=== PATIENT | female | born 1995 | race Caucasian/White ===

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

== ENCOUNTER 2017-02-09 19:51 | Emergency (ER) | payer OTHER ==
[2017-02-09 21:35] LABS: ABSOLUTE BASOPHILS # (AUTO) 0.1 10^3/uL (0.0-0.2); ABSOLUTE EOSINOPHILS # (AUTO) 0.2 10^3/uL (0.0-0.6); ABSOLUTE LYMPHOCYTES (AUTO) 3.1 10^3/uL (0.5-4.7); ABSOLUTE MONOCYTES (AUTO) 0.8 10^3/uL (0.1-1.4); ABSOLUTE NEUT (AUTO) 4.7 10^3/uL (1.7-8.2); BASOPHILS % (AUTO) 0.7 % (0-2); EOSINOPHILS % (AUTO) 2.4 % (0-6); HEMATOCRIT 41.2 % (36.0-47.0); HEMOGLOBIN 14.1 g/dL (12.0-15.5); HGB HCT DIFFERENCE 1.1; LYMPHOCYTES % (AUTO) 34.6 % (13-45); MEAN CORPUSCULAR HEMOGLOBIN 29.5 pg (27.0-33.4); MEAN CORPUSCULAR HGB CONC 34.2 g/dL (32.0-36.0); MEAN CORPUSCULAR VOLUME 86 fl (80-97); MONOCYTES % (AUTO) 8.5 % (3-13); RED BLOOD COUNT 4.79 10^6/uL (3.72-5.28); RED CELL DISTRIBUTION WIDTH 12.8 % (11.5-14.0); SEGMENTED NEUTROPHILS % (AUTO) 53.8 % (42-78); WHITE BLOOD COUNT 8.8 10^3/uL (4.0-10.5)
[2017-02-09 21:36] LABS: APPEARANCE,URINE CLEAR; BILIRUBIN,URINE NEGATIVE (NEGATIVE); GLUCOSE, URINE NEGATIVE (NEGATIVE); KETONES,URINE NEGATIVE (NEGATIVE); LEUKOCYTE ESTERASE,URINE NEGATIVE (NEGATIVE); NITRITE,URINE NEGATIVE (NEGATIVE); PROTEIN,URINE NEGATIVE (NEGATIVE); URINE SPECIFIC GRAVITY 1.014; UROBILINOGEN,URINE NEGATIVE mg/dL (<2.0)
[2017-02-09 21:49] LABS: ALANINE AMINOTRANSFERASE 31 U/L (5-35); ALBUMIN 4.5 g/dL (3.7-5.6); ALKALINE PHOSPHATASE 55 U/L (50-135); ANION GAP 12 (5-19); ASPARTATE AMINO TRANSFERASE 25 U/L (5-30); BILIRUBIN,DIRECT 0.2 mg/dL (0.0-0.4); BILIRUBIN,TOTAL 0.6 mg/dL (0.2-1.3); BLOOD UREA NITROGEN 22 mg/dL (7-20); CALCIUM 9.5 mg/dL (8.4-10.2); CARBON DIOXIDE 26 mmol/L (22-30); CHLORIDE 105 mmol/L (98-107); CREATININE RESULT 0.72 mg/dL (0.52-1.25); GLUCOSE 85 mg/dL (75-110); POTASSIUM 3.9 mmol/L (3.6-5.0); SODIUM 142.5 mmol/L (137-145); TOTAL PROTEIN 7.9 g/dL (6.3-8.2)
[2017-02-09] MEDS ORDERED: HYDROCODONE/ACETAMINOPHEN 5-325 MG TABLET PO ONE (23:53)
[2017-02-09] MEDS ORDERED: ONDANSETRON 4 MG TAB.RAPDIS PO ONE (23:53)
[2017-02-09] MEDS ORDERED: FAMOTIDINE 20 MG TABLET PO ONE (23:53)
--- NOTE | 2017-02-09 23:59 | ER Document Report ---
ED General - General Chief Complaint: Vaginal Bleeding Stated Complaint: VAGINAL BLEEDING/ABDOMINAL PAIN Time Seen by Provider: 02/09/17 23:40 TRAVEL OUTSIDE OF THE [place] IN LAST 30 DAYS: No - HPI Notes: Patient is a pleasant 21-year-old white female presents to the emergency department with report that she had a miscarriage 4 months ago which she describes as having a positive home test but was completely negative when she arrived with vaginal bleeding in the emergency department. Her hCG quant was completely negative at that time. The patient states that she normally has somewhat heavy menstrual cycle and had a normal menses 2 weeks ago and then comes in now with report that she was passing jellylike clots. The patient denies heavy bleeding currently but states the blood is somewhat dark. The patient states she has some crampy pelvic pain, but she also reports some pain to the midepigastric region. She is not taking any anti-inflammatories. She reports nausea but no vomiting. She denies any chest pain or difficulty breathing or constipation or diarrhea. No history of gastritis. She does have dysfunctional uterine bleeding. She had a previous miscarriage one year ago. Patient reports prior to her miscarriage In September, she was on a control pill and was compliant. However she got while she was on it. Since having the miscarriage she has not restarted any control pills. She previously reports being on control pills related to the irregular menstrual cycles and menorrhagia that she has had in the past. - Related Data Allergies/Adverse Reactions: Sulfa (Sulfonamide Antibiotics) Allergy (Mild, Verified 10/19/16 07:04) Past Medical History - General Information source: Patient - Social History Smoking Status: Never Smoker Frequency of alcohol use: None Drug Abuse: None Lives with: Alone Family History: Reviewed & Not Pertinent Patient has suicidal ideation: No Patient has homicidal ideation: No Renal/ Medical History: Denies: Hx Peritoneal Dialysis Review of Systems - Review of Systems Notes: REVIEW OF SYSTEMS: CONSTITUTIONAL : Denies fever, chills, or sweats. Denies recent illness. EENT: Denies eye, ear, throat, or mouth pain or symptoms. Denies nasal or sinus congestion or discharge. Denies throat, tongue, or mouth swelling or difficulty swallowing. CARDIOVASCULAR: Denies chest pain. Denies palpitations or racing or irregular heart beat. Denies ankle edema. RESPIRATORY: Denies cough, cold, or chest congestion. Denies shortness of breath, difficulty breathing, or wheezing. GASTROINTESTINAL: Denies abdominal distention. Denies vomiting, or diarrhea. Denies blood in vomitus, stools, or per rectum. Denies black, tarry stools. Denies constipation. GENITOURINARY: Denies difficulty urinating, painful urination, burning, frequency, blood in urine, or discharge. FEMALE GENITOURINARY: Denies vaginal discharge or odor. MUSCULOSKELETAL: Denies neck pain or stiffness. Denies joint pain or swelling. Minor pain to the lower back. SKIN: Denies rash, lesions or sores. HEMATOLOGIC : Denies easy bruising or bleeding. LYMPHATIC: Denies swollen, enlarged glands. NEUROLOGICAL: Denies confusion or altered mental status. Denies passing out or loss of consciousness. Denies dizziness or lightheadedness. Denies headache. Denies weakness or paralysis or loss of use of either side. Denies problems with gait or speech. Denies sensory loss, numbness, or tingling. Denies seizures. PSYCHIATRIC: Denies anxiety or stress. Denies depression, suicidal ideation, or homicidal ideation. ALL OTHER SYSTEMS REVIEWED AND NEGATIVE. Dictation was performed using [employer] voice recognition software Physical Exam - Vital signs Vitals: Temp Pulse Resp BP Pulse Ox 98.6 F 75 18 139/86 H 100 02/09/17 20:01 02/09/17 20:01 02/09/17 20:01 02/09/17 20:01 02/09/17 20:01 - Notes Notes: PHYSICAL EXAMINATION: GENERAL: Well-appearing, well-nourished and in no acute distress. HEAD: Atraumatic, normocephalic. EYES: Pupils equal round and reactive to light, extraocular movements intact, conjunctiva are normal. ENT: Nares patent, oropharynx clear without exudates. Moist mucous membranes. NECK: Normal range of motion, supple without lymphadenopathy LUNGS: Breath sounds clear to auscultation bilaterally and equal. No wheezes rales or rhonchi. HEART: Regular rate and rhythm without murmurs ABDOMEN: Soft, some tenderness midepigastric region. There is also some suprapubic discomfort. There is no rebound or guarding nondistended abdomen. No guarding, no rebound. No masses appreciated.. Negative Cole's. Female : Normal external female genitalia. minimal dark red blood noted. No clots. Cervix is benign without lesions. There is no cervical motion tenderness. There is no adnexal mass or tenderness noted. Musculoskeletal: Normal range of motion, no pitting or edema. No cyanosis. NEUROLOGICAL: Cranial nerves grossly intact. Normal speech, normal gait. Normal sensory, motor exams PSYCH: Normal mood, normal affect. SKIN: Warm, Dry, normal turgor, no rashes or lesions noted. Course - Re-evaluation Re-evalutation: 02/10/17 02:16 There is no further significant bleeding on repeat evaluation. After Pepcid and Bolivar, patient denied any further abdominal discomfort. There is no evidence for , anemia, hepatitis, electrolyte imbalance, urinary tract infection, acute cholecystitis. 02/10/17 02:[address] patient on hormone therapy with Orthocyclen and she has a follow- up appointment in 16 days with women's health. Patient was informed that they may decide to switch her control pill later. 02/10/17 02:17 - Vital Signs Vital signs: Temp Pulse Resp BP Pulse Ox 98.6 F 76 16 134/82 H 100 02/09/17 20:01 02/09/17 23:41 02/09/17 23:41 02/09/17 23:41 02/09/17 23:41 - Laboratory Result Diagrams: 02/09/17 21:28 02/09/17 21:28 Laboratory results interpreted by me: 02/09/17 02/09/17 21:19 21:28 BUN 22 H Urine Ascorbic Acid 40 H Discharge - Discharge Clinical Impression: Menorrhagia with irregular cycle Condition: Stable Disposition: HOME, SELF-CARE Admitting Provider: [facility] Instructions: Menorrhagia ([facility]) Additional Instructions: Drink plenty of fluids. Return to the emergency department case of fever, severe bleeding or severe pain. Prescriptions: Norgestimate-Ethinyl Estradiol [Ortho-Cyclen] 1 each PO ASDIR #1 tablet Referrals: [facility] [Provider Group] - Follow up as needed [facility] [Provider Group] - Follow up as needed
[2017-02-10 02:38] VITALS: BP 119/75
[2017-02-10 02:56] LABS: CHLAM PCR NOT DETECTED (NOT DETECT)
== END 2017-02-10 02:25 | disposition home or self-care (01) ==
LOC: ER 19:51
DX: N92.1 Excessive and frequent menstruation with irregular cycle (principal); R10.2 Pelvic and perineal pain; R10.13 Epigastric pain; R11.0 Nausea; N93.8 Other specified abnormal uterine and vaginal bleeding; Z88.2 Allergy status to sulfonamides
CPT/HCPCS: 99284; 36415; 87210; 84702; 84703; 85025; 80053; 81001; 87491; 87591; S0119

== ENCOUNTER 2017-07-15 12:03 | Emergency (ER) | payer OTHER ==
--- NOTE | 2017-07-15 12:51 | ER Document Report ---
HPI - HPI Patient complains to provider of: UTI symptoms, hematuria Onset: Yesterday Onset/Duration: Worse Quality of pain: Burning Pain Level: 4 Context: Patient presents complaining of dysuria and hematuria that started yesterday. Patient complains of bilateral flank pain as well. Patient denies any fever, nausea, or vomiting. Associated Symptoms: Other - Hematuria, flank pain. denies: Fever, Nausea, Vomiting Exacerbated by: Denies Relieved by: Denies Similar symptoms previously: No Recently seen / treated by doctor: No - ROS ROS below otherwise negative: Yes Systems Reviewed and Negative: Yes All other systems reviewed and negative - CONSTITUTIONAL Constitutional: DENIES: Fever, Chills - NEURO Neurology: DENIES: Weakness - GASTROINTESTINAL Gastrointestinal: DENIES: Abdominal Pain, Nausea, Patient vomiting, Diarrhea - URINARY Urinary: REPORTS: Dysuria - MUSCULOSKELETAL Musculoskeletal: REPORTS: Back Pain - DERM Skin Color: Normal Skin Problems: None Past Medical History - General Information source: Patient - Social History Smoking Status: Never Smoker Frequency of alcohol use: None Drug Abuse: None Occupation: Foodservice Family History: Arthritis, CAD, CVA, DM, Hyperlipidemia, Hypertension, Malignancy, Thyroid Disfunction Endocrine Medical History: Reports: Other - Hypoglycemia Renal/ Medical History: Denies: Hx Peritoneal Dialysis Musculoskeltal Medical History: Reports Hx Musculoskeletal Trauma - Fractured thumb, clavicle, eye socket Traumatic Medical History: Reports: Hx Fractures - Fractured thumb clavicle and eye socket Surgical Hx: Negative Vertical Provider Document - CONSTITUTIONAL Agree With Documented VS: Yes Exam Limitations: No Limitations General Appearance: WD/WN, No Apparent Distress - INFECTION CONTROL TRAVEL OUTSIDE OF THE [place] IN LAST 30 DAYS: No - HEENT HEENT: Atraumatic, Normocephalic - NECK Neck: Normal Inspection - RESPIRATORY Respiratory: Breath Sounds Normal, No Respiratory Distress O2 Sat by Pulse Oximetry: 98 - CARDIOVASCULAR Cardiovascular: Regular Rate, Regular Rhythm, No Murmur - GI/ABDOMEN Gastrointestinal: Abdomen Soft - BACK Back: negative: CVA Tenderness-Right, CVA Tenderness-Left Notes: Left lower lumbar paraspinal tenderness - MUSCULOSKELETAL/EXTREMETIES Musculoskeletal/Extremeties: BRUCE MARTIN - NEURO Level of Consciousness: Awake, Alert, Appropriate Motor/Sensory: No Motor Deficit - DERM Integumentary: Warm, Dry, No Rash Course - Vital Signs Vital signs: Temp Pulse Resp BP Pulse Ox 98.2 F 66 16 123/76 98 07/15/17 12:14 07/15/17 12:14 07/15/17 12:14 07/15/17 12:14 07/15/17 12:14 - Laboratory Laboratory results interpreted by me: 07/15/17 16:25 Labs- Entire Visit 07/15/17 13:50 Urine Color YELLOW Urine Appearance CLOUDY Urine pH 6.0 Ur Specific [place] 1.016 Urine Protein 30 H Urine Glucose (UA) NEGATIVE Urine Ketones NEGATIVE Urine Blood LARGE H Urine Nitrite NEGATIVE Urine Bilirubin NEGATIVE Urine Urobilinogen NEGATIVE Ur Leukocyte Esterase MODERATE H Urine RBC TOO NUMEROUS TO CNT Urine WBC 20-30 Ur Squamous Epith Cells MODERATE Urine Ascorbic Acid NEGATIVE Urine HCG, Qual NEGATIVE - Diagnostic Test Radiology reviewed: Reports reviewed Discharge - Discharge Clinical Impression: UTI (urinary tract infection) Qualifiers: Urinary tract infection type: site unspecified Hematuria presence: with hematuria Qualified Code(s): N39.0 - Urinary tract infection, site not specified Hematuria Qualifiers: Hematuria type: unspecified type Qualified Code(s): R31.9 - Hematuria, unspecified Condition: Stable Disposition: HOME, SELF-CARE Instructions: Cephalexin ([facility]), Urinary Anesthetic Agent ([facility]), Urinary Tract Infection ([facility]) Additional Instructions: Return immediately for any new or worsening symptoms Followup with your primary care provider, call tomorrow to make a followup appointment Urine culture is pending, we will call if you need any different treatment Prescriptions: Cephalexin Monohydrate [Keflex 500 mg Capsule] 500 mg PO Q6H 7 Days capsule Phenazopyridine HCl [Pyridium 200 mg Tablet] 200 mg PO TID #15 tablet Forms: Return to Work Referrals: CATRINA LYNCH MD [Primary Care Provider] - Follow up as needed
[2017-07-15 14:55] LABS: APPEARANCE,URINE CLOUDY; BILIRUBIN,URINE NEGATIVE (NEGATIVE); GLUCOSE, URINE NEGATIVE (NEGATIVE); KETONES,URINE NEGATIVE (NEGATIVE); LEUKOCYTE ESTERASE,URINE MODERATE (NEGATIVE); NITRITE,URINE NEGATIVE (NEGATIVE); PROTEIN,URINE 30 mg/dL (NEGATIVE); URINE SPECIFIC GRAVITY 1.016; UROBILINOGEN,URINE NEGATIVE mg/dL (<2.0)
[2017-07-15 15:00] LABS: RBC,URINE TOO NUMEROUS TO CNT /HPF; WBC,URINE 20-30 /HPF
[2017-07-15] MEDS ORDERED: CEPHALEXIN 500 MG CAPSULE PO ONE (15:19)
[2017-07-15] MEDS ORDERED: PHENAZOPYRIDINE HCL 100 MG TABLET PO ONE (15:19)
--- NOTE | 2017-07-15 16:19 | RADIOLOGY REPORT (SQ) ---
EXAM DESCRIPTION: U/S RETROPERITON (RENAL/AORTA) COMPLETED DATE/TIME: 07/15/2017 4:12 pm REASON FOR STUDY: flank pain, hematuria COMPARISON: None. TECHNIQUE: Dynamic and static grayscale images acquired of the kidneys and bladder and recorded on P ACS. Additional selected color Doppler and spectral images recorded. LIMITATIONS: None. FINDINGS: RIGHT KIDNEY: Normal size. Normal echogenicity. No solid or suspicious masses. No hydronep hrosis. No calcifications. LEFT KIDNEY: Normal size. Normal echogenicity. No solid or suspicious masses. No hydronephrosis. No calcifications. BLADDER: No masses. OTHER FINDINGS: No other significant finding. IMPRESSION: NORMAL RENAL AND BLADDER ULTRASOUND. TECHNICAL DOCUMENTATION: JOB ID: [id number] [place]-72 2010 [employer]- All Rights Reserved
[2017-07-15 16:35] VITALS: BP 123/81
== END 2017-07-15 16:30 | disposition home or self-care (01) ==
LOC: ER 12:03
DX: N39.0 Urinary tract infection, site not specified (principal); R31.9 Hematuria, unspecified; R30.0 Dysuria; R10.9 Unspecified abdominal pain
CPT/HCPCS: 99284; 87086; 81025; 87088; 81001; 87186; 76770; J3490

== ENCOUNTER 2017-10-12 18:49 | Emergency (ER) | payer OTHER ==
--- NOTE | 2017-10-12 20:05 | ER Document Report ---
ED General - General Chief Complaint: Dizziness Stated Complaint: DIZZINESS, VAGINAL BLEEDING Time Seen by Provider: 10/12/17 19:52 Mode of Arrival: Ambulatory Information source: Patient Notes: 22-year-old female with history of abnormal vaginal bleeding presents with complaints of nausea, vomiting, abnormal vaginal bleeding, abdominal pain. Patient states she has been experiencing right lower quadrant pain for 2 days. She describes it as aching, throbbing and without radiation. pain was gradual in onset and patient has had prior similar symptoms. She has had associated nausea and 2 episodes of vomiting this afternoon. She denies any fever, chills , chest pain or shortness of breath. She denies any dysuria, vaginal discharge. she is sexually active with one partner and use control pills as well as condoms. Patient has been compliant with her control. LMP 2017. states she is only suppose to get her period every four months and that why she is saying this "abnormal bleeding". she has had recent STD testing. denies history of ovarian cysts but does state she had heavy menstrual cycles in the past. TRAVEL OUTSIDE OF THE [place] IN LAST 30 DAYS: No - Related Data Allergies/Adverse Reactions: Sulfa (Sulfonamide Antibiotics) Allergy (Mild, Verified 06/15/17 11:17) Past Medical History - Social History Smoking Status: Never Smoker Frequency of alcohol use: None Drug Abuse: None Lives with: Family Family History: Arthritis, CAD, CVA, DM, Hyperlipidemia, Hypertension, Malignancy, Thyroid Disfunction Patient has suicidal ideation: No Patient has homicidal ideation: No - Past Medical History Cardiac Medical History: Reports: Other - DUB, syncopal episodes, Renal/ Medical History: Denies: Hx Peritoneal Dialysis Musculoskeltal Medical History: Reports Hx Musculoskeletal Trauma - Fractured thumb, clavicle, eye socket Traumatic Medical History: Reports: Hx Fractures - Fractured thumb clavicle and eye socket Review of Systems - Review of Systems Constitutional: No symptoms reported. denies: Fever, Recent illness EENT: No symptoms reported Cardiovascular: No symptoms reported Respiratory: No symptoms reported Gastrointestinal: Abdominal pain, Nausea, Vomiting. denies: Poor appetite, Poor fluid intake, Blood in vomit, Black stools Genitourinary: denies: Dysuria, Discharge, Frequency, Flank pain Female Genitourinary: Last menstrual period - 09/01/2017, Heavy/abnormal periods , Irregular period Neurological/Psychological: Headaches. denies: Confusion, Seizure, Lost consciousness, Numbness Physical Exam - Vital signs Vitals: Temp Pulse Resp BP Pulse Ox 98.5 F 77 16 134/81 H 99 10/12/17 19:04 10/12/17 19:04 10/12/17 19:04 10/12/17 19:04 10/12/17 19:04 - Abdominal Distension: No distension Bowel sounds: Normal Tenderness: No: Tender, Guarding, Rebound Organomegaly: No: No organomegaly - Genitourinary Speculum exam: Cervix closed, Other - mild vaginal bleeding Vaginal bleeding: Mild Bimanuel exam: Normal. No: Cervical motion tender, Adnexal mass, Adnexal tenderness - Back Back: Normal, Nontender. No: CVA tenderness - Neurological Neuro grossly intact: Yes Cognition: Normal Orientation: AAOx4 [place] Coma Scale Eye Opening: Spontaneous [place] Coma Scale Verbal: Oriented [place] Coma Scale Motor: Obeys Commands Valeria Coma Scale Total: 15 Speech: Normal Motor strength normal: LUE, RUE, LLE, RLE Sensory: Normal Course - Re-evaluation Re-evalutation: 10/13/17 14:45 Laboratory 10/12/17 10/12/17 10/12/17 19:53 20:10 20:29 WBC 10.3 RBC 4.43 Hgb 13.6 Hct 38.5 MCV 87 MCH 30.6 MCHC 35.3 RDW 13.1 Plt Count 256 Seg Neutrophils % 61.2 Lymphocytes % 29.8 Monocytes % 7.4 Eosinophils % 1.1 Basophils % 0.5 Absolute Neutrophils 6.3 Absolute Lymphocytes 3.1 Absolute Monocytes 0.8 Absolute Eosinophils 0.1 Absolute Basophils 0.1 POC Glucose 130 H Urine Color YELLOW Urine Appearance SLIGHTLY-CLOUDY Urine pH 5.0 Ur Specific [place] 1.029 Urine Protein NEGATIVE Urine Glucose (UA) NEGATIVE Urine Ketones NEGATIVE Urine Blood NEGATIVE Urine Nitrite NEGATIVE Urine Bilirubin NEGATIVE Urine Urobilinogen NEGATIVE Ur Leukocyte Esterase NEGATIVE Urine WBC (Auto) 1 Urine RBC (Auto) 1 Squamous Epi Cells Auto <1 Urine Mucus (Auto) OCC Urine Ascorbic Acid 40 H Urine HCG, Qual NEGATIVE Bacteria (Wet Prep) Trichomonas (Wet Prep) Vaginal WBC Vaginal RBC Vaginal Yeast Chlamydia DNA (PCR) N.gonorrhoeae DNA (PCR) 10/12/17 10/12/17 20:29 20:29 WBC RBC Hgb Hct MCV MCH MCHC RDW Plt Count Seg Neutrophils % Lymphocytes % Monocytes % Eosinophils % Basophils % Absolute Neutrophils Absolute Lymphocytes Absolute Monocytes Absolute Eosinophils Absolute Basophils POC Glucose Urine Color Urine Appearance Urine pH Ur Specific [place] Urine Protein Urine Glucose (UA) Urine Ketones Urine Blood Urine Nitrite Urine Bilirubin Urine Urobilinogen Ur Leukocyte Esterase Urine WBC (Auto) Urine RBC (Auto) Squamous Epi Cells Auto Urine Mucus (Auto) Urine Ascorbic Acid Urine HCG, Qual Bacteria (Wet Prep) 4+ BACTERIA SEEN Trichomonas (Wet Prep) NO TRICHOMONAS SEEN Vaginal WBC FEW WBCS SEEN Vaginal RBC 2+ RBCS SEEN Vaginal Yeast NO YEAST SEEN Chlamydia DNA (PCR) NOT DETECTED N.gonorrhoeae DNA (PCR) NOT DETECTED 22 F with history of heavy menstrual period currently on control presnets with c/o of RLQ pain, abnormal vaginal bleeding, nausea and vomiting. Upon arrival vitals reviewed and wnl. Patient does not appear toxic or dehydrated she is in NAD. Abdominal exam is wnl. patient does not have tenderness on my exam nor does she display guarding or rebound. Pelvic exam was performed and significant for mild vaginal bleeding. Patient had no CMT or adenal tenderness or fullness. Patient is not , shows no evidence of anemia or bacterial infection although GC results pending. Patient's pain resolved with toradol. Patient well appearing upon discharge. advised to f/u with [facility]. Have low suspicion for torsion as this pain is mild and was gradual in onset and patient states she has had this many times before. I believe the patient;s abdominal discomfort is secondary to her menstrual cycle. symptoms that should prompt her return were discussed with patient. - Vital Signs Vital signs: Temp Pulse Resp BP Pulse Ox 98.5 F 65 18 128/85 H 99 10/12/17 19:04 10/12/17 22:32 10/12/17 22:32 10/12/17 22:32 10/12/17 22:32 - Laboratory Result Diagrams: 10/12/17 20:29 Laboratory results interpreted by me: 10/12/17 10/12/17 19:53 20:10 POC Glucose 130 H Urine Ascorbic Acid 40 H Discharge - Discharge Clinical Impression: Vaginal bleeding, Abdominal cramping, Dizziness Condition: Good Disposition: HOME, SELF-CARE Instructions: Dizziness ([facility]), Vaginal Bleeding ([facility]) Prescriptions: Ibuprofen [Motrin 600 Mg Tablet] 600 mg PO TID #15 tablet Ondansetron [Zofran Odt 4 mg Tablet] 1 - 2 tab PO Q4H PRN #15 tab.rapdis PRN Reason: For Nausea/Vomiting
[2017-10-12 20:40] LABS: APPEARANCE,URINE SLIGHTLY-CLOUDY; BILIRUBIN,URINE NEGATIVE (NEGATIVE); COLOR,URINE YELLOW; GLUCOSE, URINE NEGATIVE (NEGATIVE); KETONES,URINE NEGATIVE (NEGATIVE); LEUKOCYTE ESTERASE,URINE NEGATIVE (NEGATIVE); NITRITE,URINE NEGATIVE (NEGATIVE); PROTEIN,URINE NEGATIVE (NEGATIVE); URINE SPECIFIC GRAVITY 1.029; UROBILINOGEN,URINE NEGATIVE mg/dL (<2.0)
[2017-10-12] MEDS ORDERED: KETOROLAC TROMETHAMINE 60 MG/2 ML SDV IM ONE (20:54)
[2017-10-12 21:04] LABS: ABSOLUTE BASOPHILS # (AUTO) 0.1 10^3/uL (0.0-0.2); ABSOLUTE EOSINOPHILS # (AUTO) 0.1 10^3/uL (0.0-0.6); ABSOLUTE LYMPHOCYTES (AUTO) 3.1 10^3/uL (0.5-4.7); ABSOLUTE MONOCYTES (AUTO) 0.8 10^3/uL (0.1-1.4); ABSOLUTE NEUT (AUTO) 6.3 10^3/uL (1.7-8.2); BASOPHILS % (AUTO) 0.5 % (0-2); EOSINOPHILS % (AUTO) 1.1 % (0-6); HEMATOCRIT 38.5 % (36.0-47.0); HEMOGLOBIN 13.6 g/dL (12.0-15.5); LYMPHOCYTES % (AUTO) 29.8 % (13-45); MEAN CORPUSCULAR HEMOGLOBIN 30.6 pg (27.0-33.4); MEAN CORPUSCULAR HGB CONC 35.3 g/dL (32.0-36.0); MEAN CORPUSCULAR VOLUME 87 fl (80-97); MONOCYTES % (AUTO) 7.4 % (3-13); PLATELET COUNT 256 10^3/uL (150-450); RED BLOOD COUNT 4.43 10^6/uL (3.72-5.28); RED CELL DISTRIBUTION WIDTH 13.1 % (11.5-14.0); SEGMENTED NEUTROPHILS % (AUTO) 61.2 % (42-78); TOTAL CELLS COUNTED % (AUTO) 100 %; WHITE BLOOD COUNT 10.3 10^3/uL (4.0-10.5)
[2017-10-12 21:35] LABS: BACTERIA (WET MOUNT) 4+ BACTERIA SEEN; RBCS (WET MOUNT) 2+ RBCS SEEN; T.VAGINALIS (WET MOUNT) NO TRICHOMONAS SEEN; WBCS (WET MOUNT) FEW WBCS SEEN; YEAST (WET MOUNT) NO YEAST SEEN
[2017-10-12 22:34] VITALS: BP 128/85
[2017-10-12 22:59] LABS: CHLAM PCR NOT DETECTED (NOT DETECT); GON PCR NOT DETECTED (NOT DETECT)
== END 2017-10-12 22:34 | disposition home or self-care (01) ==
LOC: ER 18:49
DX: N93.9 Abnormal uterine and vaginal bleeding, unspecified (principal); R10.31 Right lower quadrant pain; R42 Dizziness and giddiness; R11.2 Nausea with vomiting, unspecified
CPT/HCPCS: 99284; 96372; 36415; 87210; 82962; 85025; 81025; 81001; 87491; 87591; J1885

== ENCOUNTER 2017-12-22 02:45 | Emergency (ER) | payer OTHER ==
[2017-12-22 03:21] LABS: APPEARANCE,URINE SLIGHTLY-CLOUDY; BILIRUBIN,URINE NEGATIVE (NEGATIVE); COLOR,URINE AMBER; GLUCOSE, URINE NEGATIVE (NEGATIVE); KETONES,URINE NEGATIVE (NEGATIVE); LEUKOCYTE ESTERASE,URINE TRACE (NEGATIVE); NITRITE,URINE NEGATIVE (NEGATIVE); PROTEIN,URINE NEGATIVE (NEGATIVE); URINE SPECIFIC GRAVITY 1.026; UROBILINOGEN,URINE NEGATIVE mg/dL (<2.0)
--- NOTE | 2017-12-22 03:36 | ER Document Report ---
ED GI/ - General Chief Complaint: Urinary Problem Stated Complaint: URINARY ISSUES Time Seen by Provider: 12/22/17 03:23 Notes: Patient is a 22-year-old female comes emergency department for chief complaint of lower abdominal pain on both sides and dysuria. She also feels some pain radiating around her flank on both sides in the lower part of her back. She denies nausea vomiting, fever or chills. She denies vaginal discharge or bleeding. She takes contraceptive, she denies any daily medications otherwise. Denies any surgeries. She denies history of kidney stones. TRAVEL OUTSIDE OF THE [place] IN LAST 30 DAYS: No - Related Data Allergies/Adverse Reactions: Sulfa (Sulfonamide Antibiotics) Allergy (Mild, Verified 06/15/17 11:17) Past Medical History - General Information source: Patient - Social History Smoking Status: Never Smoker Frequency of alcohol use: None Drug Abuse: None Lives with: Family Family History: Arthritis, CAD, CVA, DM, Hyperlipidemia, Hypertension, Malignancy, Thyroid Disfunction Renal/ Medical History: Denies: Hx Peritoneal Dialysis Musculoskeltal Medical History: Reports Hx Musculoskeletal Trauma - Fractured thumb, clavicle, eye socket Traumatic Medical History: Reports: Hx Fractures - Fractured thumb clavicle and eye socket Review of Systems - Review of Systems Constitutional: No symptoms reported EENT: No symptoms reported Cardiovascular: No symptoms reported Respiratory: No symptoms reported Gastrointestinal: See HPI Genitourinary: See HPI Female Genitourinary: See HPI Musculoskeletal: No symptoms reported Skin: No symptoms reported Hematologic/Lymphatic: No symptoms reported Neurological/Psychological: No symptoms reported Physical Exam - Vital signs Vitals: Temp Pulse Resp BP Pulse Ox 98.3 F 65 16 122/75 98 12/22/17 02:50 12/22/17 02:50 12/22/17 02:50 12/22/17 02:50 12/22/17 02:50 Interpretation: Normal - General General appearance: Appears well, Alert In distress: None - HEENT Head: Normocephalic, Atraumatic Eyes: Normal Pupils: PERRL - Respiratory Respiratory status: No respiratory distress Chest status: Nontender Breath sounds: Normal Chest palpation: Normal - Cardiovascular Rhythm: Regular Heart sounds: Normal auscultation Murmur: No - Abdominal Inspection: Normal Distension: No distension Bowel sounds: Normal Tenderness: Tender - Lower abdominal pelvic tenderness generally, worse over the suprapubic area, no guarding, no rigidity, no rebound tenderness Organomegaly: No organomegaly - Genitourinary External exam: Normal Speculum exam: Normal, Cervix closed. No: Cervix open, Vaginal discharge Vaginal bleeding: None Bimanuel exam: Normal Notes: KRISTIAN Wilcox present during exam - Back Back: Normal, Nontender. No: Tender, CVA tenderness - Extremities General upper extremity: Normal inspection, Nontender, Normal color, Normal ROM , Normal temperature General lower extremity: Normal inspection, Nontender, Normal color, Normal ROM , Normal temperature, Normal weight bearing. No: Latricia's sign - Neurological Neuro grossly intact: Yes Cognition: Normal Orientation: AAOx4 [place] Coma Scale Eye Opening: Spontaneous [place] Coma Scale Verbal: Oriented [place] Coma Scale Motor: Obeys Commands Val[place] Coma Scale Total: 15 Speech: Normal Motor strength normal: LUE, RUE, LLE, RLE Sensory: Normal - Psychological Associated symptoms: Normal affect, Normal mood - Skin Skin Temperature: Warm Skin Moisture: Dry Skin Color: Normal Course - Re-evaluation Re-evalutation: Patient with suprapubic tenderness, possible urinary tract infection by lab, hCG negative. Because of general tenderness over the pelvic area which is mild I discussed with patient and she requested pelvic exam, this was performed, shows no concerning abnormality. No CVA tenderness, no fever, no vomiting, well -appearing patient. Very soft abdomen otherwise. Low suspicion of acute abdomen. Treating dysuria, discussed follow-up and return precautions, patient states understanding and agreement. - Vital Signs Vital signs: Temp Pulse Resp BP Pulse Ox 97.6 F 64 16 120/68 100 12/22/17 04:39 12/22/17 04:39 12/22/17 04:39 12/22/17 04:39 12/22/17 04:39 - Laboratory Laboratory results interpreted by me: 12/22/17 02:54 Ur Leukocyte Esterase TRACE H Urine Ascorbic Acid 40 H Discharge - Discharge Clinical Impression: Dysuria, Lower abdominal pain Condition: Stable Disposition: HOME, SELF-CARE Additional Instructions: You are being treated for suspected bladder infection. Take Keflex as prescribed to completion. Follow-up with primary care. Return for any concerning symptoms including vomiting, fever of 100.4 or greater , she returned or worsening pain, or any other concerning or worsening symptoms. Prescriptions: Cephalexin Monohydrate [Keflex 500 mg Capsule] 500 mg PO BID #10 capsule Referrals: SOFY WHITE PA [Primary Care Provider] - Follow up as needed
[2017-12-22 04:04] LABS: BACTERIA (WET MOUNT) 3+ BACTERIA SEEN; EPITHELIALS (WET MOUNT) 3+ EPITHELIALS SEEN; RBCS (WET MOUNT) FEW RBCS SEEN; T.VAGINALIS (WET MOUNT) NO TRICHOMONAS SEEN; WBCS (WET MOUNT) 1+ WBCS SEEN; YEAST (WET MOUNT) NO YEAST SEEN
[2017-12-22] MEDS ORDERED: CEPHALEXIN 500 MG CAPSULE PO ONE (04:14)
[2017-12-22 04:40] VITALS: BP 120/68
[2017-12-22 05:32] LABS: CHLAM PCR NOT DETECTED (NOT DETECT); GON PCR NOT DETECTED (NOT DETECT)
== END 2017-12-22 04:40 | disposition home or self-care (01) ==
LOC: ER 02:45
DX: R30.0 Dysuria (principal); R10.31 Right lower quadrant pain; R10.32 Left lower quadrant pain; M54.5 Low back pain
CPT/HCPCS: 81001; 81025; 87210; 87491; 87591; 99284